=== PATIENT | male | born 1990 | race Hispanic/Latino ===

== ENCOUNTER 2018-11-27 21:15 | Observation (INO) | payer BC ==
--- NOTE | 2018-11-27 21:39 | ED PDOC ---
Arrival/HPI - General Chief Complaint: Headache Time Seen by Provider: 11/27/18 21:16 - History of Present Illness Narrative History of Present Illness (Text): 27 yr old male w/ no ppmhx p/w 40 min episode of slurred speech, R arm numbness which resolved followed by L sided arm numbness and headache. Pt notes first time occurrence of symptoms of slurred speech and numbness. Pt notes that he had been having intermittent headache associated with numbness and tingling in his upper extremities over the past 2 weeks. He was seen by Dr. Flood who recc an outpt MRI which the patient has not yet completed. He notes the headache was not present during his slurred speech (only after) and described as a throbbing to his left side. He also noted that before he had the headache he noted squiggly lines in both of his eyes. He denies any current vision complaints. He denies any current slurred speech. Fellow officers in the room attests that patient had slurred speech prior, but none now. He denies any family hx of migraines. He denies any neck stiffnes, fever, chills or night sweats. No constipation or diarrhea. No dark or bloody stool. No chest pain, palpitations, abdominal pain or any other complaints. Neuro: Dr. Flood PMD: none 11/27/18 21:44 Past Medical History - Psychiatric Hx Substance Use: No - Anesthesia Hx Anesthesia: No Hx Anesthesia Reactions: No Hx Malignant Hyperthermia: No Family/Social History Family/Social History: Unknown Family HX Smoking Status: Never Smoked Hx Alcohol Use: No Hx Substance Use: No Allergies/Home Meds Allergies/Adverse Reactions: Allergies cat dander Allergy (Verified 11/27/18 21:22) SHORTNESS OF BREATH dog dander Allergy (Verified 11/27/18 21:22) SHORTNESS OF BREATH Home Medications: Home Meds Medication Instructions Recorded Confirmed No Known Home Med 11/27/18 11/27/18 Review of Systems - Review of Systems Constitutional: absent: Fatigue, Weight Change, Fevers Eyes: absent: Photophobia, Eye Pain ENT: absent: Hearing Changes, Tinnitus, TMJ Pain Respiratory: absent: SOB, Cough Cardiovascular: absent: Chest Pain, Palpitations, Other Gastrointestinal: absent: Abdominal Pain Genitourinary Male: absent: Dysuria, Frequency, Hematuria Musculoskeletal: absent: Arthralgias, Back Pain, Neck Pain Skin: absent: Rash, Pruritis Neurological: Headache. absent: Dizziness, Focal Weakness, Gait Changes, Disequilibrium Endocrine: absent: Diaphoresis Hemo/Lymphatic: absent: Adenopathy Psychiatric: absent: Anxiety Physical Exam Vital Signs Temp Pulse Resp BP Pulse Ox 11/27/18 21:22 98.2 F 110 H 18 153/80 H 100 Temperature: Afebrile Blood Pressure: Normal Pulse: Regular Respiratory Rate: Normal Appearance: Positive for: Well-Appearing, Non-Toxic, Comfortable Pain Distress: None Mental Status: Positive for: Alert and Oriented X 3 - Systems Exam Head: Present: Atraumatic, Normocephalic Pupils: Present: PERRL. No: Sluggish Extroacular Muscles: Present: EOMI. No: Gaze Palsy, Entrapment Conjunctiva: Present: Normal. No: Injected Ears: Present: Normal, NORMAL TM Mouth: Present: Moist Mucous Membranes Pharnyx: Present: Normal. No: ERYTHEMA, EXUDATE Nose (External): Present: Atraumatic. No: Abrasion Nose (Internal): Present: Normal Inspection, No Active Bleeding Neck: Present: Normal Range of Motion. No: Meningeal Signs, MIDLINE TENDERNESS, JVD Respiratory/Chest: Present: Clear to Auscultation, Good Air Exchange. No: Respiratory Distress, Accessory Muscle Use Cardiovascular: Present: Regular Rate and Rhythm, Normal S1, S2. No: Murmurs Abdomen: No: Tenderness, Distention, Peritoneal Signs Back: Present: Normal Inspection. No: CVA Tenderness, Midline Tenderness Upper Extremity: Present: Normal Inspection, Normal ROM, NORMAL PULSES, Neurovascularly Intact, Capillary Refill < 2s. No: Cyanosis, Edema, Tenderness, Swelling Lower Extremity: Present: Normal Inspection, NORMAL PULSES, Neurovascularly Intact, Capillary Refill < 2 s. No: Edema, Tenderness, Swelling Neurological: Present: GCS=15, CN II-XII Intact, Speech Normal, Motor Func Grossly Intact, Normal Sensory Function, Normal Cerebellar Funct, Gait Normal, Memory Normal, Other (no slurred speech) Skin: Present: Warm, Dry, Normal Color. No: Rashes Psychiatric: Present: Alert, Oriented x 3, Normal Insight, Normal Concentration Medical Decision Making ED Course and Treatment: 27 yr old male w/ no ppmhx p/w 40 min episode of slurred speech, R arm numbness which resolved followed by L sided arm numbness and headache. Solomon is not worst of life or sudden in onset, began 1 hour prior. Prior to headache pt noted slurred speech and squiggly lines in vision. Currently pt denies any slurred speech / vision issues. Is being seen outpt currently for headache and had outpt MRI scheduled. Likely atypical migraine, however 40 mins of witnessed slurred speech is abnl and did not occure with headache, given story / possible TIA, will call code stroke. 11/27/18 21:40 EK, sinus tachy, no stemi 11/27/18 21:49 Appreciate consult w/ [facility]: no stroke visualized Appreciate consult w/ Dr. Goldman: likely migraine headache, can follow up with Dr. Flood in AM. 11/27/18 22:33 labs largely unremarkable pt notes great improvement of symptoms, mild headache continues, but no numbness or tingling in any extremities. Neuro exam remains unremarkable Paged Dr. Cowart for admission 11/27/18 22:41 appreciate consult w/ Dr. Cowart: we are to endorse to medical case worker, place pt in tele and order consult for jose appreciate consult w/ medical case worker: to see pt pt in NAD, agreeable to plan - RAD Interpretation Radiology Orders: 11/27/18 21:33 HEAD W/O (CODE STROKE) [CT] Stat CHEST PORTABLE [RAD] Stat - Medication Orders Current Medication Orders: Sodium Chloride (Sodium Chloride 0.9%) 1,000 mls @ 100 mls/hr IV .Q10H [facility] NIHSS Scale ([place]) Time Performed: 09:35 - How Severe is the Stoke Baseline Level of Consciousness: 0=Alert LOC to Questions: 0=Both comments correct LOC to commands: 0=Obeys both correctly Best Gaze: 0=Normal Visual: 0=No visual loss Facial: 0=Normal Motor Arm - Left: 0=No drift Motor Arm - Right: 0=No drift Motor Leg - Left: 0=No drift Motor Leg - Right: 0=No drift Limb Ataxia: 0=Absent Sensory: 0=Normal Best Language: 0=No aphasia Dysarthia: 0=Normal articulation Extinction & Inattention (Neglect): 0=Normal, no object Score: 0 Risk Level: No Stroke Risk Disposition/Present on Arrival - Present on Arrival Any Indicators Present on Arrival: No History of DVT/PE: No History of Uncontrolled Diabetes: No Urinary Catheter: No History of Decub. Ulcer: No History Surgical Site Infection Following: None - Disposition Have Diagnosis and Disposition been Completed?: Yes Diagnosis: Headache, Stroke-like symptoms Disposition Time: 21:58 Patient Problems: Current Active Problems Problem Status Onset Headache Acute Stroke-like symptoms Acute Condition: STABLE Forms: Mot[employer] (Lithuanian)
[2018-11-27] MEDS: Sodium Chloride 0.9% 1,000 ML IV SCH (21:49)
[2018-11-27 22:16] VITALS: BMI 38.5
[2018-11-27 22:20] LABS: BASO # 0.03 {null, K/mm3} (0.0-2.0); BASO % 0.3 % (0.0-3.0); EOS # 0.1 (0.0-0.7); EOS % 1.2 % (1.5-5.0); HEMOGLOBIN 16.1 g/dL (14.0-18.0); LYMPH # 1.7 (1.2-3.4); LYMPH % 17.7 % (22.0-35.0); MEAN CELL VOLUME 88.1 fl (80.0-105.0); MEAN CORPUSCULAR HEMOGLOBIN 31.3 pg (25.0-35.0); MEAN CORPUSCULAR HGB CONC 35.5 g/dl (31.0-37.0); MEAN PLATELET VOLUME 10.1 fl (7.0-11.0); MONO # 0.7 (0.1-0.6); MONO % 7.1 % (1.0-6.0); RBC 5.14 {null, 10^6/uL} (3.5-6.1); RED CELL DISTRIBUTION WIDTH 12.3 % (11.5-14.5); WHITE BLOOD COUNT 9.7 {null, 10^3/uL} (4.5-11.0)
[2018-11-27 22:29] LABS: PARTIAL THROMBOPLASTIN TIME 34.3 Seconds (26.9-38.3); PROTHROMBIN TIME 11.1 SECONDS (9.4-12.5)
[2018-11-27 22:30] LABS: ALB/GLOB RATIO 1.4 (1.1-1.8); ALBUMIN 4.8 g/dL (3.0-4.8); ALT/SGPT 41 U/L (7-56); AST/SGOT 31 U/L (17-59); BLOOD UREA NITROGEN 13 mg/dL (7-21); CALCIUM 9.4 mg/dL (8.4-10.5); GFR NON-AFRICAN AMERICAN > 60; HDL CHOLESTEROL 41 mg/dL (29-60)
[2018-11-27 22:41] LABS: LDL CHOLESTEROL 109 mg/dL (0-129)
[2018-11-27 22:44] LABS: TROPONIN I < 0.01 ng/mL
[2018-11-28] MEDS ORDERED: Enoxaparin 40 mg Syringe SC SCH ×2 (00:01→10:00)
--- NOTE | 2018-11-28 00:27 | CP.PCM.HP ---
History of Present Illness - History of Present Illness History of Present Illness: Neo Patten, DO PGY-1 H&P Note for Dr. Supa Johnson: slurred speech, headache, left arm numbness 27 y/o male with PMH of migraine presents with slurred speech for 40 minutes, right arm numbness, headache. Patient usually gets migraine q2-3 days for the past 2 years with symptoms of frontal headache associated with right arm numbnes s/tingling, blurry vision. His symptoms responds to staying in a quite room and NSAID use. Today's symptoms were associated with slurred speech that was witnessed by co-workers. Symptoms resolved spontaneously with still have mild headache. Patient denied known history of HTN, heart disease. Last seen by his PMD 3 years ago. He is morbidly obese, does not exercise or follow healthy diet He denies dizziness, palpitations, CP, SOB, fever, chills, neck stiffness, GI/ symptoms, recent sickness/sick contacts. 12 points ROS reviewed and otherwise negative In the ED: code stroke activated, CT head done with no ICH. Patient given asa 325, lipitor 80 and lopressor PMHx: migraine PSHx: denies FH: mother, CAD. Father, DM Social Hx: current smoker, 1 ppd x10 yr. Drinks alcohol socially. Denies illicit drug use All:NKDA Meds: advil prn Present on Admission - Present on Admission Any Indicators Present on Admission: No Past Patient History - Past Social History Smoking Status: Never Smoked - PSYCHIATRIC Hx Substance Use: No - SURGICAL HISTORY Hx Surgeries: No - ANESTHESIA Hx Anesthesia: No Hx Anesthesia Reactions: No Hx Malignant Hyperthermia: No Meds Allergies/Adverse Reactions: Allergies Allergy/AdvReac Type Severity Reaction Status Date / Time cat dander Allergy SHORTNESS Verified 11/27/18 21:22 OF BREATH dog dander Allergy SHORTNESS Verified 11/27/18 21:22 OF BREATH Physical Exam - Constitutional Appears: Well, Non-toxic, No Acute Distress - Head Exam Head Exam: ATRAUMATIC, NORMAL INSPECTION, NORMOCEPHALIC - Eye Exam Eye Exam: EOMI, Normal appearance, PERRL Pupil Exam: NORMAL ACCOMODATION, PERRL - ENT Exam ENT Exam: Mucous Membranes Moist, Normal Exam - Neck Exam Neck exam: Positive for: Normal Inspection. Negative for: Lymphadenopathy, Thyromegaly - Respiratory Exam Respiratory Exam: Clear to Auscultation Bilateral, NORMAL BREATHING PATTERN - Cardiovascular Exam Cardiovascular Exam: REGULAR RHYTHM, +S1, +S2. absent: RRR, Rubs - GI/Abdominal Exam GI & Abdominal Exam: Normal Bowel Sounds, Soft. absent: Guarding, Mass, Tenderness Additional comments: obese - Extremities Exam Extremities exam: Positive for: full ROM, normal capillary refill, normal inspection, pedal pulses present - Back Exam Back exam: NORMAL INSPECTION - Neurological Exam Neurological exam: Alert, CN II-XII Intact, Normal Gait, Oriented x3, Reflexes Normal - Psychiatric Exam Psychiatric exam: Normal Affect, Normal Mood - Skin Skin Exam: Dry, Intact, Normal Color, Warm Results - Vital Signs Recent Vital Signs: Last Vital Signs Temp 98.2 F 11/27/18 21:22 Pulse 109 H 11/27/18 23:33 Resp 14 11/27/18 23:33 BP 131/65 11/27/18 23:33 Pulse Ox 100 11/27/18 23:33 - Labs Result Diagrams: 11/27/18 22:05 11/27/18 22:05 Labs: Laboratory Results - last 24 hr 11/27/18 11/27/18 11/27/18 22:05 22:05 22:05 WBC 9.7 RBC 5.14 Hgb 16.1 Hct 45.3 MCV 88.1 MCH 31.3 MCHC 35.5 RDW 12.3 Plt Count 222 MPV 10.1 Neut % (Auto) 73.7 H Lymph % (Auto) 17.7 L Berks % (Auto) 7.1 H Eos % (Auto) 1.2 L Baso % (Auto) 0.3 Lymph # (Auto) 1.7 Berks # (Auto) 0.7 H Eos # (Auto) 0.1 Baso # (Auto) 0.03 Absolute Neuts (auto) 7.17 H PT 11.1 INR 1.00 APTT 34.3 Sodium 139 Potassium 3.8 Chloride 102 Carbon Dioxide 27 Anion Gap 14 BUN 13 Creatinine 0.9 Est GFR ( Amer) > 60 Est GFR (Non-Af Amer) > 60 Random Glucose 107 Calcium 9.4 Total Bilirubin 0.4 AST 31 ALT 41 Alkaline Phosphatase 66 Troponin I < 0.01 Total Protein 8.0 Albumin 4.8 Globulin 3.3 Albumin/Globulin Ratio 1.4 Triglycerides 308 H Cholesterol 202 H LDL Cholesterol Direct 109 HDL Cholesterol 41 Blood Type Antibody Screen BBK History Checked 11/27/18 22:05 WBC RBC Hgb Hct MCV MCH MCHC RDW Plt Count MPV Neut % (Auto) Lymph % (Auto) Berks % (Auto) Eos % (Auto) Baso % (Auto) Lymph # (Auto) Berks # (Auto) Eos # (Auto) Baso # (Auto) Absolute Neuts (auto) PT INR APTT Sodium Potassium Chloride Carbon Dioxide Anion Gap BUN Creatinine Est GFR ( Amer) Est GFR (Non-Af Amer) Random Glucose Calcium Total Bilirubin AST ALT Alkaline Phosphatase Troponin I Total Protein Albumin Globulin Albumin/Globulin Ratio Triglycerides Cholesterol LDL Cholesterol Direct HDL Cholesterol Blood Type O POSITIVE Antibody Screen Negative BBK History Checked No verified bt Assessment & Plan - Assessment and Plan (Free Text) Assessment: 27 y/o male with PMH of migraine presents with slurred speech for 40 minutes, right arm numbness, headache. Symptoms resolved spontaneously. Patient is admitted to [facility] for work up Plan: Slurred speech,headache,numbness: -h/o migraine, symptoms resolved spontaneously, neuro exam normal -CT head: no ICH -MRA brain, MRI neck, echo, carotid duplex US ordered -EKG: sinus tachy @105, no ST-T changes. repeat EKG in am -trops negative x1. continue to trend -CXR: NAD -started asa 325, metoprolol 25mg bid -f/u TSH, T4, UDS -seizure precaution, neuro check -neuro consulted, Dr. Flood HLD: -lipid profile: levated LDL, TG -started lipitor 80 Morbid obesity: -BMI 38.5 -counseled on exercise, healthy diet PPX: DVT: SCD, lovenox GI: protonix HHD Case reviewed and plan discussed with Dr Supa Patten, DO PGY1
[2018-11-28 06:53] VITALS: RESP 18; O2SAT 96
[2018-11-28] MEDS: Sodium Chloride 0.9% 1,000 ML IV SCH (08:00)
[2018-11-28 08:19] LABS: BASO # 0.04 {null, K/mm3} (0.0-2.0); BASO % 0.5 % (0.0-3.0); EOS # 0.2 (0.0-0.7); EOS % 2.8 % (1.5-5.0); HEMOGLOBIN 14.3 g/dL (14.0-18.0); LYMPH # 3.5 (1.2-3.4); LYMPH % 41.5 % (22.0-35.0); MEAN CELL VOLUME 89.2 fl (80.0-105.0); MEAN CORPUSCULAR HGB CONC 34.7 g/dl (31.0-37.0); MEAN PLATELET VOLUME 10.3 fl (7.0-11.0); MONO # 0.7 (0.1-0.6); MONO % 8.8 % (1.0-6.0); RBC 4.62 {null, 10^6/uL} (3.5-6.1); RED CELL DISTRIBUTION WIDTH 12.7 % (11.5-14.5); WHITE BLOOD COUNT 8.4 {null, 10^3/uL} (4.5-11.0)
[2018-11-28 08:53] LABS: ALB/GLOB RATIO 1.4 (1.1-1.8); ALBUMIN 3.9 g/dL (3.0-4.8); ALT/SGPT 33 U/L (7-56); AST/SGOT 26 U/L (17-59); BLOOD UREA NITROGEN 12 mg/dL (7-21); CALCIUM 8.6 mg/dL (8.4-10.5); GFR NON-AFRICAN AMERICAN > 60
[2018-11-28 09:00] LABS: TROPONIN I < 0.01 ng/mL
[2018-11-28] MEDS ORDERED: Gadodiamide 287 MG/ML VIAL (20ML) IV ONE (09:06)
[2018-11-28] MEDS ORDERED: Potassium Chloride 20 mEq ER Tab PO ONE (09:14)
--- NOTE | 2018-11-28 09:36 | CARD ---
APPROVED REPORT Date of service: 11/27/2018 EKG Measurement Heart [id number] <Conclusion> Sinus tachycardia Otherwise normal ECG
[2018-11-28] MEDS ORDERED: Omega-3-Acid Ethyl Esters 1 GM Cap PO SCH (10:00)
--- NOTE | 2018-11-28 10:07 | CT ---
Date of service: 11/27/2018 PROCEDURE: CT HEAD WITHOUT CONTRAST. HISTORY: Code Stroke COMPARISON: None available. TECHNIQUE: Axial computed tomography images were obtained through the head/brain without intravenous contrast. Radiation dose: Total exam DLP = 960.08 mGy-cm. This CT exam was performed using one or more of the following dose reduction techniques: Automated exposure control, adjustment of the mA and/or kV according to patient size, and/or use of iterative reconstruction technique. FINDINGS: HEMORRHAGE: No intracranial hemorrhage. BRAIN: No mass effect or edema. No atrophy or chronic microvascular ischemic changes. VENTRICLES: Unremarkable. No hydrocephalus. CALVARIUM: Unremarkable. PARANASAL SINUSES: Unremarkable as visualized. No significant inflammatory changes. MASTOID AIR CELLS: Unremarkable as visualized. No inflammatory changes. OTHER FINDINGS: The report concurs with the preliminary [facility] report IMPRESSION: No acute intracranial findings
--- NOTE | 2018-11-28 10:09 | CARD ---
APPROVED REPORT Date of service: 11/28/2018 EKG Measurement Heart [id number] <Conclusion> Sinus rhythm with 1st degree AV block Otherwise normal ECG
--- NOTE | 2018-11-28 10:42 | MRI ---
Date of service: 11/28/2018 PROCEDURE: MRI BRAIN WITH AND WITHOUT CONTRAST HISTORY: HEADACHE, NUMBNESS COMPARISON: None available. TECHNIQUE: Multiplanar, multisequence MR images of the brain were obtained with and without intravenous contrast enhancement. 20 cc of Omniscan FINDINGS: HEMORRHAGE: None DWI: No evidence of an acute or early subacute infarction. BRAIN PARENCHYMA: No mass,mass effect or edema. No atrophy or chronic microvascular ischemic changes. ENHANCEMENT: No abnormal intracranial enhancement. VENTRICLES: Unremarkable. No hydrocephalus. CRANIUM: Unremarkable. ORBITS: Grossly unremarkable. PARANASAL SINUSES/MASTOIDS: Clear VASCULAR SYSTEM: Skull base flow voids intact. OTHER FINDINGS: None . IMPRESSION: Unremarkable pre and post contrast enhanced MRI of the brain.
--- NOTE | 2018-11-28 10:44 | MRI ---
Date of service: 11/28/2018 PROCEDURE: Magnetic Resonance Angiography Brain HISTORY: code stroke/?dysarthria COMPARISON: None available. TECHNIQUE: 3D time of flight MR angiography of the intracranial arteries was performed. Rotating maximum intensity projection images were generated. FINDINGS: INTERNAL CAROTID ARTERIES: Unremarkable. The skull base, petrous, cavernous and supraclinoid segments are bilaterally widely patient. ANTERIOR CEREBRAL ARTERIES: Unremarkable. A1 and A2 segments are widely patent. Smaller distal branches unremarkable, as visualized. MIDDLE CEREBRAL ARTERIES: Unremarkable. M1 and M2 segments are widely patent. Perisylvian branches grossly symmetric. POSTERIOR CIRCULATION: Basilar Artery: Unremarkable. Distal Vertebral Arteries: Unremarkable. Posterior Cerebral Arteries: Unremarkable. Posterior Inferior Cerebellar Arteries: Unremarkable. ANEURYSM/ VASCULAR MALFORMATIONS: None. OTHER FINDINGS: None. IMPRESSION: Unremarkable MR angiography of the brain.
--- NOTE | 2018-11-28 10:46 | MRI ---
Date of service: 11/28/2018 PROCEDURE: MR Angiography of the neck with and without contrast HISTORY: HEADACHE, NUMBNESS COMPARISON: None available. TECHNIQUE: Contrast enhanced and [id number] angiography of the neck was performed. Rotating 3D maximum intensity projection images of the cervical carotid and vertebral arteries were generated. 20 cc of Omniscan FINDINGS: RIGHT CAROTID ARTERIES: Common Carotid Artery: Normal. Carotid Bifurcation: Normal. Internal Carotid Artery:Normal. External Carotid Artery (proximal branches): Normal. LEFT CAROTID ARTERIES: Common Carotid Artery: Normal. Carotid Bifurcation: Normal. Internal Carotid Artery:Normal. External Carotid Artery (proximal branches): Normal. VERTEBRAL ARTERIES: Right Vertebral Artery: Normal. Left Vertebral Artery: Normal. OTHER FINDINGS: None. IMPRESSION: Normal MR Angiography of the neck.
--- NOTE | 2018-11-28 11:18 | RAD ---
Date of service: 11/27/2018 PROCEDURE: CHEST RADIOGRAPH, 1 VIEW HISTORY: Code Stroke COMPARISON: None available. FINDINGS: LUNGS: Clear. PLEURA: No pneumothorax or pleural fluid seen. CARDIOVASCULAR: No aortic atherosclerotic calcification present. Normal. OSSEOUS STRUCTURES: No significant abnormalities. VISUALIZED UPPER ABDOMEN: Normal. OTHER FINDINGS: None. IMPRESSION: No active disease.
[2018-11-28 12:40] VITALS: BP 100/64; TEMP 98.2
[2018-11-28 14:05] VITALS: PULSE 64
--- NOTE | 2018-11-28 14:11 | US ---
PROCEDURE: Bilateral carotid artery duplex ultrasound HISTORY: Carotid stenosis TIA PHYSICIAN(S): Jose Pat MD. TECHNIQUE: Duplex sonography and color-flow Doppler were used to evaluate the carotid bifurcations and limited segments of the vertebral arteries bilaterally. The exam is limited by body habitus. FINDINGS: There is minimal intimal-medial thickening noted at the carotid bifurcations bilaterally. The peak systolic velocity in the proximal right internal carotid artery is 67 cm/sec. This corresponds to a 0-19 percent proximal right ICA stenosis. Normal systolic velocities are noted in the proximal right external carotid artery. There is antegrade flow in the right vertebral artery. The peak systolic velocity in the proximal left internal carotid artery is 79 cm/sec. This corresponds to a 0-19 percent proximal left ICA stenosis. Normal systolic velocities are noted in the proximal left external carotid artery. There is antegrade flow in the left vertebral artery. IMPRESSION: 1. Bilateral 0-19 percent proximal ICA stenoses. 2. Antegrade flow in both vertebral arteries.
--- NOTE | 2018-11-28 16:03 | DS ---
DATE: 11/28/2018 SUBJECTIVE: The patient is seen lying in the bed in room 271, bed 1. The patient is alert, awake, responsive. The patient denies any right or left upper extremity numbness. Denies any right facial numbness. Denies any dysarthria. Overnight nurses' notes were reviewed. No adverse events were documented. PHYSICAL EXAMINATION: GENERAL: The patient is seen and examined, seen lying in the bed. The patient is alert, awake, responsive. VITAL SIGNS: T-max 98.3; heart rate 70, 70, 80, 98; blood pressure 130/84, 131/65, 133/80. There is a blood pressure, which is noted at 96/50. Respirations are 18. O2 sat 96%. HEENT: Head examination is normocephalic, atraumatic. Eyes, examination shows pinkish pale conjunctivae. Anicteric sclerae. No oropharyngeal lesion. NECK: No neck rigidity. CHEST: Kyphosis. LUNGS: No audible crackle, rales, or wheezing. CARDIOVASCULAR: S1, S2, regular rhythm. No audible murmur, gallop, or rub. ABDOMEN: Morbidly obese. No palpable hepatosplenomegaly. GENITALIA: Male. RECTAL: Deferred. EXTREMITIES: Shows no pitting edema, no calf tenderness and no Homans' sign. NEUROLOGIC: The patient is alert, awake, and oriented x3. Cranial nerves II through XII intact but limited. Gait examination is independent. is negative. Coordination is intact. MUSCULOSKELETAL: Shows an elevated body mass index of 44. DIAGNOSTICS: From 11/27/2018, CBC is 8.4, hemoglobin and hematocrit 14.3/41.2, platelet 202. Sodium 139, potassium 3.5, chloride 105, CO2 of 28, anion gap 9, BUN 12, creatinine 0.8, GFR is greater than 60, glucose 96, calcium 8.6, phosphorus 4.3, magnesium 1.9. LFTs are negative. Troponin; all three sets are negative. TSH 1.31, T4 of 7.4. CT of the head was negative. EKG shows sinus rhythm with questionable first degree AV block. IMPRESSION: 1. Bilateral upper extremity numbness with right-sided facial numbness, headache, dysarthria, and slurred speech (resolved). 2. Family history of diabetes and coronary artery disease. 3. History of migraine. 4. Hypercholesteremia and elevated LDL. 5. Hypokalemia. 6. Status post code stroke. 7. Dysarthria with slurred speech (resolved). 8. Bilateral upper extremity and right facial numbness (resolved). 9. Questionable atypical migraine with dysarthria and bilateral upper extremity numbness. 10. Sinus tachycardia. 11. Morbid obesity with elevated body mass index of 44. 12. Nicotine dependence. 13. Hypertriglyceridemia. PLAN: At this time, the patient is awaiting for the MRI and MRA of the brain. The patient has been given potassium supplementation for hypokalemia. The patient is awaiting for MRI and MRA of the brain, MRA of the neck. The patient's hemoglobin A1c is pending. Neurology evaluation is pending. Lyme titers, RPR pending. The patient is on aspirin 81 mg p.o. daily, Lipitor 80 mg daily, Ecotrin 81 mg daily, Lopressor 25 mg twice a day, Lovaza 2 g twice a day, Lovenox 40 mg subcutaneous daily, Protonix 40 mg daily, IV fluid 0.9 normal saline at 100 mL an hour, Tylenol 650 mg p.o. suppository every 6 hours p.r.n., Zofran 4 mg IV every 4 hours p.r.n. Carotid vertebral Doppler is pending. MRI and MRA of the brain, MRA of the neck pending. Echo with Doppler pending. The patient is on heart healthy diet, SCDs, neuro checks, seizure precautions. Out of bed to chair. At present, the patient's further management will be dependent upon the patient's clinical condition, hemodynamic status and as per the patient's response to therapeutic intervention, as per the patient's diagnostic test results and as per recommendation and evaluation by Neurology, and as per the patient's pending diagnostic test results including MRI and MRA of the brain and neck, carotid Doppler, and echocardiogram. The patient has been updated about his condition, diagnoses, treatment plan, further management and plan . The patient has been counseled about cessation of smoking. The patient has been counseled about weight loss. The patient was started on nicotine patch. The patient has been advised to exercise. The patient has been advised weight loss. As mentioned, the patient's further management will be dependent upon the patient's clinical condition, hemodynamic status and as per the patient response to therapeutic intervention as per the patient's diagnostic test results and as per recommendation by Neurology. Once above is available and once the patient is cleared for discharged by Neurology and once the patient's entire diagnostic testing is negative. The patient will be considered for discharge. Dictated and electronically signed, not read. Tung Cowart MD
[2018-11-28 17:47] LABS: RAPID PLASMA REAGIN NONREACTIVE (NONREACTIVE)
[2018-11-28 18:00] LABS: BARBITURATES, UR NEGATIVE (NEGATIVE); BENZODIAZEPINES, UR NEGATIVE (NEGATIVE); OPIATES, UR NEGATIVE (NEGATIVE); PHENCYCLIDINE, UR NEGATIVE (NEGATIVE)
--- NOTE | 2018-11-28 21:11 | CON ---
DATE: 11/28/2018 HISTORY OF PRESENT ILLNESS: This is a 27-year-old male with past medical history of migraine who came with slurring of speech, right arm numbness, and headache. The symptoms improved. Today, he again had some speech problem and a mild headache. Now the numbness travels to the left side, left upper extremity. Recently seen in the office. A CT scan of the head was done which was negative. MRI of the head also normal. PAST MEDICAL HISTORY: Migraine. ALLERGIES: NO KNOWN DRUG ALLERGY. SOCIAL HISTORY: Smokes 1 pack per day, does not drink. PHYSICAL EXAMINATION: VITAL SIGNS: Blood pressure 131/65. HEENT: Normocephalic and atraumatic. NEUROLOGIC: Cranial nerves II to XII were tested. Pupils reactive. EOM intact. Visual chavez full. No facial symmetry. Tongue midline. Motor examination, moves all extremities equally. Tone normal. Deep tendon reflexes 1+. Both plantars are downgoing. Sensory appears intact. Cerebellar gait deferred. IMPRESSION AND PLAN: Migraine headaches that were possibly atypical versus transient ischemia attack. Workup is negative. Continue present management. We will follow up. Gene Flood MD
--- NOTE | 2018-11-28 23:20 | CP.PCM.DIS ---
Provider - Provider Date of Admission: 11/27/18 22:34 Attending physician: Tung Cowart MD Consults: 11/27/18 21:33 Stroke Team Consult Stat Comment: Consulting Provider: Neurohospitalist Consulting Physician: NEUROHOARIC Neurohospitalist for Consult: Musa Adrian Neurohospitalist for Consult: Magy Goldman Reason for Consult: tia 11/27/18 21:58 Consult [Physician Consult] Routine Comment: Consulting Provider: Gene Flood Consulting Physician: Gene Flood Reason for Consult: tia vs atypical migraine Time Spent in preparation of Discharge (in minutes): 45 Diagnosis - Discharge Diagnosis (1) Migraine Status: Chronic Hospital Course - Lab Results Lab Results: Most Recent Lab Values WBC 8.4 10^3/uL (4.5-11.0) 11/28/18 07:45 RBC 4.62 10^6/uL (3.5-6.1) 11/28/18 07:45 Hgb 14.3 g/dL (14.0-18.0) 11/28/18 07:45 Hct 41.2 % (42.0-52.0) L 11/28/18 07:45 MCV 89.2 fl (80.0-105.0) 11/28/18 07:45 MCH 31.0 pg (25.0-35.0) 11/28/18 07:45 MCHC 34.7 g/dl (31.0-37.0) 11/28/18 07:45 RDW 12.7 % (11.5-14.5) 11/28/18 07:45 Plt Count 202 10^3/uL (120.0-450.0) 11/28/18 07:45 MPV 10.3 fl (7.0-11.0) 11/28/18 07:45 Neut % (Auto) 46.4 % (50.0-68.0) L 11/28/18 07:45 Lymph % (Auto) 41.5 % (22.0-35.0) H 11/28/18 07:45 Harnett % (Auto) 8.8 % (1.0-6.0) H 11/28/18 07:45 Eos % (Auto) 2.8 % (1.5-5.0) 11/28/18 07:45 Baso % (Auto) 0.5 % (0.0-3.0) 11/28/18 07:45 Lymph # (Auto) 3.5 (1.2-3.4) H 11/28/18 07:45 Harnett # (Auto) 0.7 (0.1-0.6) H 11/28/18 07:45 Eos # (Auto) 0.2 (0.0-0.7) 11/28/18 07:45 Baso # (Auto) 0.04 K/mm3 (0.0-2.0) 11/28/18 07:45 Absolute Neuts (auto) 3.91 (1.4-6.5) 11/28/18 07:45 PT 11.1 SECONDS (9.4-12.5) 11/27/18 22:05 INR 1.00 11/27/18 22:05 APTT 34.3 Seconds (26.9-38.3) 11/27/18 22:05 Sodium 139 mmol/L (132-148) 11/28/18 05:00 Potassium 3.5 mmol/L (3.6-5.0) L 11/28/18 05:00 Chloride 105 mmol/L (98-107) 11/28/18 05:00 Carbon Dioxide 28 mmol/L (21-33) 11/28/18 05:00 Anion Gap 9 (10-20) L 11/28/18 05:00 BUN 12 mg/dL (7-21) 11/28/18 05:00 Creatinine 0.8 mg/dl (0.8-1.5) 11/28/18 05:00 Est GFR ( Amer) > 60 11/28/18 05:00 Est GFR (Non-Af Amer) > 60 11/28/18 05:00 Random Glucose 96 mg/dL (70-110) 11/28/18 05:00 Hemoglobin A1c 5.3 % (4.2-6.5) 11/28/18 07:45 Calcium 8.6 mg/dL (8.4-10.5) 11/28/18 05:00 Phosphorus 4.3 mg/dL (2.5-4.5) 11/28/18 05:00 Magnesium 1.9 mg/dL (1.7-2.2) 11/28/18 05:00 Total Bilirubin 0.4 mg/dL (0.2-1.3) 11/28/18 05:00 AST 26 U/L (17-59) 11/28/18 05:00 ALT 33 U/L (7-56) 11/28/18 05:00 Alkaline Phosphatase 55 U/L (38-126) 11/28/18 05:00 Troponin I < 0.01 ng/mL 11/28/18 05:00 Total Protein 6.7 g/dL (5.8-8.3) 11/28/18 05:00 Albumin 3.9 g/dL (3.0-4.8) 11/28/18 05:00 Globulin 2.8 gm/dL 11/28/18 05:00 Albumin/Globulin Ratio 1.4 (1.1-1.8) 11/28/18 05:00 Triglycerides 308 mg/dL (35-160) H 11/27/18 22:05 Cholesterol 202 mg/dL (130-200) H 11/27/18 22:05 LDL Cholesterol Direct 109 mg/dL (0-129) 11/27/18 22:05 HDL Cholesterol 41 mg/dL (29-60) 11/27/18 22:05 25-OH Vitamin D Total 13.3 NG/ML (30.0-100.0) L 11/28/18 07:45 Thyroxine (T4) 10.4 ug/dL (5.5-11.0) 11/27/18 22:05 TSH 3rd Generation 1.31 mIU/mL (0.46-4.68) 11/27/18 22:05 Urine Opiates Screen Negative (NEGATIVE) 11/28/18 17:19 Urine Methadone Screen Negative (NEGATIVE) 11/28/18 17:19 Ur Barbiturates Screen Negative (NEGATIVE) 11/28/18 17:19 Ur Phencyclidine Scrn Negative (NEGATIVE) 11/28/18 17:19 Ur Amphetamines Screen Negative (NEGATIVE) 11/28/18 17:19 U Benzodiazepines Scrn Negative (NEGATIVE) 11/28/18 17:19 U Oth Cocaine Metabols Negative (NEGATIVE) 11/28/18 17:19 U Cannabinoids Screen Negative (NEGATIVE) 11/28/18 17:19 RPR Nonreactive (NONREACTIVE) 11/28/18 07:45 Blood Type O POSITIVE 11/27/18 22:05 Blood Type Confirm O POSITIVE 11/28/18 02:35 Antibody Screen Negative 11/27/18 22:05 BBK History Checked No verified bt 11/27/18 22:05 - Hospital Course Hospital Course: 27 year old male with a PMH of migraines, tobacco use and morbid obesity who was admitted for symptomatic migraine w/ slurred speech and RUE numbness that resolved on admission. CODE STROKE was activated in the ED. CT Head, MRI brain, MRA head and neck were all unremarkable. Carotid US showed unremarkable stenoses. EKG was NSR w/ 1st degree block. Patient's headache improved and other neurological symptoms completely resolved. Neurology was consulted and cleared the patient for discharge. The patient was provided scripts for his newly prescribed medications and instructed to f/u with Dr. Cowart in his office on 11/30/18. Questions were answered to both patient and who was bedside at time of discharge. Discharge Exam - Head Exam Head Exam: ATRAUMATIC, NORMAL INSPECTION, NORMOCEPHALIC - Eye Exam Eye Exam: EOMI, Normal appearance, PERRL Pupil Exam: NORMAL ACCOMODATION, PERRL - ENT Exam ENT Exam: Mucous Membranes Moist, Normal Exam - Neck Exam Neck exam: Normal Inspection Additional comments: no meningeal signs - Respiratory Exam Respiratory Exam: NORMAL BREATHING PATTERN. absent: Wheezes, Respiratory Distress - Cardiovascular Exam Cardiovascular Exam: RRR, +S1, +S2. absent: Systolic Murmur - GI/Abdominal Exam GI & Abdominal Exam: Normal Bowel Sounds, Soft. absent: Distended, Tenderness - Extremities Exam Extremities exam: full ROM, normal inspection - Back Exam Back exam: FULL ROM, NORMAL INSPECTION - Neurological Exam Neurological exam: Alert, CN II-XII Intact, Normal Gait, Oriented x3, Reflexes Normal - Skin Skin Exam: Dry, Intact, Normal Color, Warm Discharge Plan - Discharge Medications Prescriptions: Acetaminophen [Tylenol 325mg tab] 650 mg PO Q6 PRN #56 tab PRN Reason: TEMP>=99.5F Aspirin [Ecotrin] 81 mg PO DAILY #14 tabec Atorvastatin [Lipitor] 80 mg PO DIN #14 tab Metoprolol Tartrate [Lopressor] 25 mg PO BID #28 tab Nicotine 21 mg/24 hr [Nicoderm Cq] 1 patch TD DAILY #14 patch [id number] Ethyl Esters 1 GM [Lovaza] 2 gm PO BID #28 sgl - Follow Up Plan Condition: STABLE Disposition: HOME/ ROUTINE Instructions: Migraine Headache (DC), Headache, Adult (DC) Additional Instructions: cleared for d/c as cleared by neurology please follow up with Dr. Cowart in office on 11/30/18. card and info provided please take the medications as prescribed patient can return to work as tolerated with no restrictions please return to ER for evaluations if symptoms worsen Referrals: Tung Cowart MD [Staff Provider] -
== END 2018-11-28 17:18 | disposition home or self-care (01) ==
LOC: ED 21:15 → ERH 22:34 → 2RSO 11-28 00:24
PROVIDERS: ADMIT Internal Medicine; ATTEND Internal Medicine
DX: G43.909 Migraine, unspecified, not intractable, without status migrainosus (principal); E66.01 Morbid (severe) obesity due to excess calories; Z68.41 Body mass index [BMI] 40.0-44.9, adult; E78.00 Pure hypercholesterolemia, unspecified; E87.6 Hypokalemia; E78.1 Pure hyperglyceridemia; F17.210 Nicotine dependence, cigarettes, uncomplicated; Z82.49 Family history of ischemic heart disease and other diseases of the circulatory system; Z83.3 Family history of diabetes mellitus
CPT/HCPCS: 36415; 70450; 70544; 70549; 70553; 71045; 80053; 80061; 82306; 83036; 83735; 84100; 84436; 84443; 84484; 85025; 85610; 85730; 86592; 86618; 86850; 86900; 93005; 93880; 96372; 96374; 96375; 99285; A9579; C9113; G0378; G0480; J1650; J2765; J7030